=== PATIENT | male | born 2000 | race African-American/Black ===

== ENCOUNTER 2024-05-16 17:35 | Emergency (ER) | payer OTHER ==
[2024-05-16 19:45] LABS: Absolute Eosinophils 0.4 K/uL (0-0.5); Absolute Lymphocytes (CBC) 2.3 K/uL (0.7-4.9); Absolute Monocytes 0.6 K/uL (0.1-1.3); Absolute Neutrophil 5.1 K/uL (1.8-8.0); Basophils % 0.3 % (0-1.3); Eosinophils % 4.3 % (0-4.4); Hematocrit 46.9 % (39.6-49.0); Hemoglobin 15.4 g/dL (13.6-17.9); Lymphocytes % 27.8 % (15.3-44.8); MCHC 32.8 g/dL (32.0-36.0); MCV 79.3 fL (80-100); MPV 8.9 fL (7.6-11.3); Monocytes % 7.3 % (3.3-12.3); Neutrophils % 60.3 % (41.7-73.7); Nucleated Red Blood Cells % 0.1 % (0-0); Platelets 204 thou/uL (152-406); RBC Red Blood Cell Count 5.91 M/uL (4.33-5.43); Red Cell Distribution Width 13.3 % (12.1-15.2)
[2024-05-16] MEDS ORDERED: NA CHLORIDE 0.9% 1,000 ML ONE (19:56)
[2024-05-16 20:15] LABS: Albumin 4.4 g/dL (3.4-5.0); Albumin/Globulin Ratio 1.3 (1.1-1.8); Anion Gap 5.2 mEq/L (5.0-15.0); Bilirubin Total 0.5 mg/dL (0.2-1.0); Globulin 3.4 g/dL (2.3-3.5); Potassium 4.2 mEq/L (3.5-5.1); Protein, Total 7.8 g/dL (6.4-8.2)
--- NOTE | 2024-05-16 21:09 | RAD REPORT ---
EXAMINATION: CT ABDOMEN AND PELVIS WITH CONTRAST CLINICAL INDICATION: Abdominal pain TECHNIQUE: CT abdomen and pelvis was performed, after the administration of 100 cc Isovue-300.. Sagit zbigniew and coronal reconstructions were obtained. One or more of the following dose reduction techniques were used: Automated exposure control, adjustment of the mA and kV according to patient si ze, and iterative reconstruction. Unless otherwise specified, incidental findings do not require dedicated imaging follow-up. [id number]. Oral contrast was not given which limits evaluation of bowel and appendix. COMPARISON: none FINDINGS: Liver, spleen, pancreas, adrenals and kidneys appear unremarkable No evidence of diverticulitis. Normal appendix. : IMPRESSION: No acute abnormality displayed
--- NOTE | 2024-05-16 21:54 | EDPHYS ---
Physician Documentation [facility] Name: Dank Philip Age: 23 yrs Sex: Male : 2000 Arrival Date: 05/16/2024 Time: 17:35 Bed 8 Private MD: ED Physician Hernan Licea HPI: 05/16 18:30 This 23 yrs old Black Male presents to ER via Ambulatory with complaints of Abdominal sb4 Pain. 18:30 The patient presents with abdominal pain in the left lower quadrant. sb4 18:31 Onset: The symptoms/episode began/occurred 5 day(s) ago. The symptoms radiate to left sb4 back. Associated signs and symptoms: Pertinent positives: diarrhea. The symptoms are described as crampy, vague. Modifying factors: The symptoms are alleviated by nothing, the symptoms are aggravated by nothing. The patient has not experienced similar symptoms in the past. The patient has been recently seen at an urgent care, last week, for similar complaints, told to take laxatives. Historical: - Allergies: 18:29 No Known Allergies; aa5 - Home Meds: 18:29 None [Active]; aa5 - PMHx: 18:29 None; aa5 - PSHx: 18:29 left leg; aa5 - Immunization history:: Adult Immunizations unknown. - Infectious Disease History:: Denies. - Social history:: Smoking status: Patient denies any tobacco usage or history of. ROS: 18:31 Constitutional: Negative for fever, chills, and weight loss, sb4 18:31 Abdomen/GI: Positive for abdominal pain, diarrhea, 18:31 All other systems are negative, Exam: 18:31 Constitutional: This is a well developed, well nourished patient who is awake, alert, sb4 and in no acute distress. Head/Face: Normocephalic, atraumatic. Eyes: Extra-ocular motions intact. Periorbital areas with no swelling, redness, or edema. ENT: Mucous membranes moist. Cardiovascular: Regular rate and rhythm with a normal S1 and S2. Respiratory: No increased work of breathing, no retractions or nasal flaring. Abdomen/GI: Soft, non-tender, no distension. Skin: Warm, dry with normal turgor. Normal color with no rashes, no lesions, and no evidence of cellulitis. Vital Signs: 18:28 BP 147 / 96; Pulse 64; Resp 18 S; Temp 98.2(TE); Pulse Ox 100% on R/A; Pain 4/10; aa5 21:45 BP 141 / 97; Pulse 65; Resp 17; Temp 98.2; Pulse Ox 99% ; Pain 4/10; bm8 18:28 Pain Scale: Adult aa5 21:45 Pain Scale: Adult bm8 Malin Coma Score: 20:29 Eye Response: spontaneous(4). Motor Response: obeys commands(6). Verbal Response: bm8 oriented(5). Total: 15. 21:45 Eye Response: spontaneous(4). Motor Response: obeys commands(6). Verbal Response: bm8 oriented(5). Total: 15. MDM: 18:27 Medical Screening Exam initiated sb4 05/16 18:30 Order name: CBC with Diff; Complete Time: 19:48 sb4 05/16 18:30 Order name: CMP; Complete Time: 20:17 sb4 05/16 18:30 Order name: Lipase; Complete Time: 20:17 sb4 05/16 18:30 Order name: CT Abd/Pelvis - IV Contrast Only; Complete Time: 21:44 sb4 05/16 18:30 Order name: IV Saline Lock; Complete Time: 20:23 sb4 05/16 18:30 Order name: Labs collected and sent; Complete Time: 20:23 sb4 Administered Medications: 20:22 Drug: NS 0.9% IV 1000 ml IV at 1000 ml once; to be given as a bolus over 60 minutes bm8 Route: IV; Rate: 1000 ml; Site: right forearm; 22:06 Follow up: Response: No adverse reaction; IV Status: Completed infusion; IV Intake: bm8 1000ml Disposition: 21:53 Co-signature as Attending Physician, Hernan Licea MD I agree with the assessment sp4 and plan of care. I reviewed the patient's care provided by Advanced Practice Provider \T\ agree w/ the diagnosis \T\ care plan. I personally saw the pt \T\ performed a substantive portion of the visit, incldng all aspects of the (History/Exam/Medical Decision Making). Disposition Summary: 05/16/24 21:54 Discharge Ordered Notes: Add fiber in your diet Location: Home sp4 Problem: new sp4 Symptoms: have improved sp4 Condition: Stable sp4 Diagnosis - Lower abdominal pain, unspecified sp4 - Left lower abdominal pain sp4 Followup: sb4 - With: Private Physician - When: As needed - Reason: Recheck today's complaints, Re-evaluation by your physician Discharge Instructions: - Discharge Summary Sheet sb4 - Abdominal Pain, Adult, [id number] sb4 Forms: - Patient Portal Instructions sp4 Prescriptions: - Diclofenac Sodium 75 mg Oral Tablet Sustained Release - take 1 tablet ORAL route 2 times per day; 30 tablet; Refills: 0, Product sb4 Selection Permitted - dicyclomine 20 mg Oral tablet - take 1 tablet ORAL route 3 times per day; 20 tablet; Refills: 0, Product sb4 Selection Permitted Signatures: Dispatcher [employer] Hollie Ramirez, RN RN aa5 Kiersten Vences PABonny PABonny sb4 Hernan Licea MD MD sp4 Timothy Drummond RN RN bm8 Corrections: (The following items were deleted from the chart) 18:31 18:31 CBC+H.LAB.BRZ ordered. EDMS EDMS 18:31 18:31 COMPREHENSIVE METABOLIC PANEL+C.LAB.BRZ ordered. EDMS EDMS 18:31 18:31 LIPASE+C.LAB.BRZ ordered. EDMS EDMS 18:31 18:31 Urinalysis+U.LAB.BRZ ordered. EDMS EDMS 18:31 18:31 Abdomen Pelvis W Con+CT.RAD.BRZ ordered. EDMS EDMS 18:31 18:30 The patient presents with abdominal pain in the left lower quadrant, sb4 sb4
--- NOTE | 2024-05-16 21:54 | ER ---
Nurse's Notes [facility] Name: Dank Philip Age: 23 yrs Sex: Male : 2000 Arrival Date: 05/16/2024 Time: 17:35 Bed 8 Private MD: Diagnosis: Lower abdominal pain, unspecified;Left lower abdominal pain Presentation: 05/16 18:28 Chief complaint: Patient states: LLQ pain since Thursday, reports was seen at urgent aa5 care and was told to take laxatives. Pt denies nausea/vomiting. Coronavirus screen: At this time, the client does not indicate any symptoms associated with coronavirus-19. Ebola Screen: Patient denies travel to an Ebola-affected area in the 21 days before illness onset. Initial Sepsis Screen: Does the patient meet any 2 criteria? No. Patient's initial sepsis screen is negative. Does the patient have a suspected source of infection? No. Patient's initial sepsis screen is negative. Risk Assessment: Do you want to hurt yourself or someone else? Patient reports no desire to harm self or others. Onset of symptoms was May 2024. 18:28 Acuity: QASIM 3 aa5 18:28 Method Of Arrival: Ambulatory aa5 Historical: - Allergies: 18:29 No Known Allergies; aa5 - Home Meds: 18:29 None [Active]; aa5 - PMHx: 18:29 None; aa5 - PSHx: 18:29 left leg; aa5 - Immunization history:: Adult Immunizations unknown. - Infectious Disease History:: Denies. - Social history:: Smoking status: Patient denies any tobacco usage or history of. Screenin:29 [facility] ED Fall Risk Assessment (Adult) History of falling in the last 3 months, bm8 including since admission No falls in past 3 months (0 pts) Confusion or Disorientation No (0 pts) Intoxicated or Sedated No (0 pts) Impaired Gait No (0 pts) Mobility Assist Device Used No (0 pt) Altered Elimination No (0 pt) Score/Fall Risk Level 0 - 2 = Low Risk Oriented to surroundings, Maintained a safe environment, Educated pt \T\ family on fall prevention, incl call for assistance when getting out of bed, Assessed \T\ reinforced patient's understanding of fall precautions, Hourly rounding (assess needs \T\ fall precautionary measures) done, Used ambulatory aids as needed (educated on \T\ assisted with), Used gait belt as appropriate. Abuse screen: Denies threats or abuse. Nutritional screening: No deficits noted. Tuberculosis screening: No symptoms or risk factors identified. Assessment: 20:29 Reassessment: Patient appears in no apparent distress at this time. Patient and/or bm8 family updated on plan of care and expected duration. Pain level reassessed. Patient is alert, oriented x 3, equal unlabored respirations, skin warm/dry/pink. General: Appears in no apparent distress. comfortable, Behavior is calm, cooperative, appropriate for age. Pain: Complains of pain in left lower quadrant Pain currently is 4 out of 10 on a pain scale. Quality of pain is described as dull. Neuro: No deficits noted. Level of Consciousness is awake, alert, obeys commands, Oriented to person, place, time, situation, Appropriate for age. Cardiovascular: No deficits noted. Capillary refill < 3 seconds in bilateral fingers Patient's skin is warm and dry. Respiratory: No deficits noted. Airway is patent Respiratory effort is even, unlabored, Respiratory pattern is regular, symmetrical. GI: Abdomen is flat, non-distended, Last BM was May 15, 2024. Bowel sounds present X 4 quads. Abd is soft and non tender Reports lower abdominal pain, constipation, Pain is 4 out of 10 on a pain scale. : No signs and/or symptoms were reported regarding the genitourinary system. EENT: No signs and/or symptoms were reported regarding the EENT system. Derm: No signs and/or symptoms reported regarding the dermatologic system. Musculoskeletal: No signs and/or symptoms reported regarding the musculoskeletal system. 21:45 Reassessment: Patient appears in no apparent distress at this time. No changes from bm8 previously documented assessment. Patient and/or family updated on plan of care and expected duration. Pain level reassessed. Patient is alert, oriented x 3, equal unlabored respirations, skin warm/dry/pink. Vital Signs: 18:28 BP 147 / 96; Pulse 64; Resp 18 S; Temp 98.2(TE); Pulse Ox 100% on R/A; Pain 4/10; aa5 21:45 BP 141 / 97; Pulse 65; Resp 17; Temp 98.2; Pulse Ox 99% ; Pain 4/10; bm8 18:28 Pain Scale: Adult aa5 21:45 Pain Scale: Adult bm8 Brando Coma Score: 20:29 Eye Response: spontaneous(4). Motor Response: obeys commands(6). Verbal Response: bm8 oriented(5). Total: 15. 21:45 Eye Response: spontaneous(4). Motor Response: obeys commands(6). Verbal Response: bm8 oriented(5). Total: 15. ED Course: 17:43 Patient arrived in ED. mg5 17:50 Kiersten Vences PA-C is PHCP. sb4 17:51 Jay Jay Toney MD is Attending Physician. sb4 18:28 Arm band placed on. aa5 18:29 Triage completed. aa5 18:33 Radiology exam delayed due to lab results not completed at this time. (BUN/Creatinine). nj 18:33 Radiology exam delayed due to IV insertion attempt and/or patient not having nj appropriate IV at this time. 19:03 Radiology exam delayed due to lab results not completed at this time. (BUN/Creatinine) ls3 IV insertion attempt and/or patient not having appropriate IV at this time. 19:52 Timothy Drummond, RN is Primary Nurse. bm8 20:10 Missed attempt(s): 22 gauge in left antecubital area. Bleeding controlled, band aid bm8 applied, catheter tip intact. 20:24 Attending Physician role handed off by Jay Jay Toney MD sp4 20:24 Hernan Licea MD is Attending Physician. sp4 20:29 Patient has correct armband on for positive identification. Placed in gown. Bed in low bm8 position. Call light in reach. Side rails up X 1. Adult w/ patient. Client placed on continuous cardiac and pulse oximetry monitoring. NIBP monitoring applied. Pulse ox on. NIBP on. Door closed. Noise minimized. Warm blanket given. Pillow given. Verbal reassurance given. Head of bed elevated. 20:29 No provider procedures requiring assistance completed. Initial lab(s) drawn, by me, bm8 sent to lab. Inserted saline lock: 22 gauge in right forearm, using aseptic technique. Flushed with 10 mL NS. 20:31 Inserted saline lock: 20 gauge in left antecubital area, using aseptic technique. bm8 ,using aseptic technique. ultrasound guided Blood collected. Flushed with 10 mL NS. 21:00 CT Abd/Pelvis - IV Contrast Only In Process Unspecified. EDMS 22:06 Provided Education on: post ER care. bm8 22:06 IV discontinued, intact, bleeding controlled, No redness/swelling at site. Pressure bm8 dressing applied, x2. Administered Medications: 20:22 Drug: NS 0.9% IV 1000 ml IV at 1000 ml once; to be given as a bolus over 60 minutes bm8 Route: IV; Rate: 1000 ml; Site: right forearm; 22:06 Follow up: Response: No adverse reaction; IV Status: Completed infusion; IV Intake: bm8 1000ml Medication: 20:29 VIS not applicable for this client. bm8 Intake: 22:06 IV: 1000ml; Total: 1000ml. bm8 Outcome: 21:54 Discharge ordered by . sp4 22:06 Discharged to home ambulatory, bm8 22:06 Condition: stable 22:06 Discharge instructions given to patient, family, Instructed on discharge instructions, follow up and referral plans. Demonstrated understanding of instructions, follow-up care, medications, Prescriptions given X 2, 22:07 Patient left the ED. bm8 Signatures: Dispatcher [employer] EDMS Hollie Ruiz, RN RN aa5 Immanuel Miller Lynzie ls3 Kiersten Vences, PAMariselaC PA-C Hernan Dietz MD MD sp4 Ronit Valdez mg5 Timothy Drummond, RN RN bm8
[2024-05-16 23:54] VITALS: TEMP 98.2
[2024-05-17 00:11] VITALS: BP 141/97; O2SAT 99
== END 2024-05-16 22:07 | disposition home or self-care (01) ==
LOC: ER 17:35
DX: R10.32 Left lower quadrant pain (principal)
CPT/HCPCS: 85025; 36415; 83690; 80053; 74177; Q9967; J7030; 96360; 96361; 99284